=== PATIENT | male | born 1995 | race Caucasian/White ===

== ENCOUNTER → 2016-12-08 | Outpatient (CLI) | payer SELFPAY ==
[2016-12-08 11:41] VITALS: BP 133/86
== END ==
LOC: MHUC 09:50
PROVIDERS: ATTEND Physician Assistant
DX: T23.131A Burn of first degree of multiple right fingers (nail), not including thumb, initial encounter (principal); X10.2XXA Contact with fats and cooking oils, initial encounter
CPT/HCPCS: 99213

== ENCOUNTER → 2017-01-15 | Outpatient (CLI) | payer SELFPAY ==
[2017-01-15 11:47] VITALS: BP 140/87
== END ==
LOC: MHUC 10:37
PROVIDERS: ATTEND Physician Assistant
DX: N50.89 Other specified disorders of the male genital organs (principal)
CPT/HCPCS: 99212